=== PATIENT | male | born 1990 | race Caucasian/White ===

== ENCOUNTER 2020-08-01 21:03 | Emergency (ER) | payer OTHER ==
[2020-08-01] MEDS ORDERED: Lidocaine 1% 30 ML SDV INJECT ONE (21:19)
[2020-08-01] MEDS ORDERED: Lidocaine 1% 30 ML SDV ONE (21:34)
--- NOTE | 2020-08-02 10:53 | EDM.PDOC ---
ED HPI GENERAL MEDICAL PROBLEM - General Chief Complaint: Laceration Stated Complaint: LACERATION TO L THUMB Time Seen by Provider: 08/01/20 21:20 Source of Information: Reports: Patient History Limitations: Reports: No Limitations - History of Present Illness INITIAL COMMENTS - FREE TEXT/NARRATIVE: Pt. sustained laceration over dorsal IP joint of L thumb. He states that he was moving a log of wood on a splitter and sustained the injury. Tetanus up to date 2015. Pt. denies any decreased ROM. No numbness/tingling in the distal portion of the extremity. Denies any injury elsewhere. Onset Date: 08/01/20 Location: Reports: Upper Extremity, Left Treatments BATCH ATTENDANT: Reports: Dressing(s) Left Finger-Thumb Pain Score (Numeric/FACES): 1 - Related Data Allergies Allergy/AdvReac Type Severity Reaction Status Date / Time No Known Allergies Allergy Verified 08/01/20 21:19 Home Meds: Home Meds . [Unable to Verify Home Med List] 08/01/20 [History] Past Medical History Respiratory History: Reports: Asthma Psychiatric History: Reports: Anxiety, Dementia Social & Family History - Tobacco Use Tobacco Use Status *Q: Never Tobacco User - Recreational Drug Use Recreational Drug Use: No ED ROS GENERAL - Review of Systems Review Of Systems: Comprehensive ROS is negative, except as noted in HPI. ED EXAM, SKIN/RASH Exam: See Below Exam Limited By: No Limitations General Appearance: Alert, WD/WN, No Apparent Distress Extremities: Other (3.5 cm curvilinear , subcutanous laceration running horizontally across IP joint of L thumb. Mild contamination noted. Edges along border of laceration are mildly devitilized. CMS intact. ROM is normal. No problems with flexion/extension of the digit.) ED SKIN PROCEDURES - Laceration/Wound Repair Left Dorsal Digit - 1st (Thumb) Appearance: Subcutaneous Distal NVT: Neuro & Vascular Intact, No Tendon Injury Anesthetic Type: Local Local Anesthesia - Lidocaine (Xylocaine): 1% Plain Local Anesthetic Volume: 5cc Skin Prep: Chlorhexidine (Hibiciens), Saline Saline Irrigation (cc's): 1,000 Exploration/Debridement/Repair: Wound Explored, Minimal Debridement (Edges of one side of the laceration were revised due to redundant, devitilized tissue.), Wound Margins Revised Closed with: Sutures Lac/Wound length In cm: 3.5 Suture Size: 4-0 # of Sutures: 6 Suture Type: Nylon Course - Vital Signs Last Recorded V/S: Last Vital Signs Temp 37.2 C 08/01/20 21:15 Pulse 88 08/01/20 21:15 Resp 16 08/01/20 21:15 BP 154/95 H 08/01/20 21:15 Pulse Ox 98 08/01/20 21:15 - Orders/Labs/Meds Meds: Medications Discontinued Medications Generic Name Dose Route Start Last Admin Trade Name Hussein PRN Reason Stop Dose Admin Lidocaine HCl 30 ml 08/01/20 21:19 08/01/20 21:36 Lidocaine 1% 30 Ml Sdv INJECT 08/01/20 21:20 30 ml ONETIME ONE Administration Lidocaine HCl Confirm 08/01/20 21:34 08/01/20 21:36 Lidocaine 1% 30 Ml Sdv Administered 08/01/20 21:35 Not Given Dose 30 ml .ROUTE .STK-MED ONE Departure - Departure Time of Disposition: 10:55 Disposition: Home, Self-Care 01 Clinical Impression: Laceration - Discharge Information Instructions: Laceration Care, Adult Referrals: PCP,None [Primary Care Provider] - Forms: ED Department Discharge Additional Instructions: Sutures out in 12 days. These can be removed in the clinic at that time (is usually done by the nurses). Keep splint on for 7 days. Keep dry for 48 hours. After 48 hours, you can remove the dressing and then just use big bandaids if you anticipate the area getting dirty. Keep open to air as much as possible. Return to ER if you have any redness, swelling, or discharge from the area. Also return if you have any fever or chills. Sepsis Event Note (ED) - Evaluation Sepsis Screening Result: No Definite Risk - Problem List Review Problem List Initiated/Reviewed/Updated: Yes - Assessment/Plan Plan: Sutures out in 12 days. These can be removed in the clinic at that time (is usually done by the nurses). Keep splint on for 7 days. Keep dry for 48 hours. After 48 hours, you can remove the dressing and then just use big bandaids if you anticipate the area getting dirty. Keep open to air as much as possible. Return to ER if you have any redness, swelling, or discharge from the area. Also return if you have any fever or chills.
== END 2020-08-01 21:57 | disposition home or self-care (01) ==
LOC: VM.ED 21:03
DX: S61.012A Laceration without foreign body of left thumb without damage to nail, initial encounter (principal); J45.909 Unspecified asthma, uncomplicated; F03.90 Unspecified dementia, unspecified severity, without behavioral disturbance, psychotic disturbance, mood disturbance, and anxiety; W26.8XXA Contact with other sharp object(s), not elsewhere classified, initial encounter
CPT/HCPCS: 12002; 99282; 99282-25